=== PATIENT | female | born 1985 | race Caucasian/White ===

== ENCOUNTER 2023-06-16 17:01 | Emergency (ER) | payer OTHER, SELFPAY ==
[2023-06-16 17:07] VITALS: BP 132/87; PULSE 86; RESP 18; TEMP 36.9; O2SAT 99; BMI 31.8
--- NOTE | 2023-06-16 17:18 | PC.NURSE ---
pt presents to ED because pt was outside working in yard and stepped into a hole in ground and twisted left ankle. bruising and swelling to outside of left ankle. ice pack applied. pt able to extend and flex ankle without difficulty. pulses palpable.
--- NOTE | 2023-06-16 17:28 | XR_ITS ---
The [address] [address] Patient Name: KWAME MOREIRA MRN: [id number] date: 1985 Sex: F Assigned Patient Location: ER Current Patient Location: ER Accession/Order Number: [id number] Exam Date: 06/16/2023 17:29 Report Date: 06/16/2023 17:46 At the request of: KATJA TROY Procedure: XR ankle LT min 3V EXAM: XR ankle LT min 3V HISTORY: Stepped in hole COMPARISON: None. TECHNIQUE: 3 views FINDINGS: IMPRESSION: Mild lateral subcutaneous soft tissue edema. No fracture, dislocation, subluxation or osseous lesion. Joint spaces are unremarkable. No joint effusion. Electronically authenticated by: TRUDY ARTEAGA Date: 06/16/2023 17:46
[2023-06-16] MEDS: KETOROLAC TROMETHAMINE 10 MG TABLET PO (17:36)
--- NOTE | 2023-06-16 17:48 | ED.LOWEXI1 ---
HPI - Extremity Injury (Lower) General Chief Complaint: Extremity Injury, Lower Stated Complaint: FALL LEFT ANKLE Time Seen by Provider: 06/16/23 17:26 Source: patient Mode of arrival: Wheelchair History of Present Illness HPI Narrative: patient is a 38-year-old female presents the emergency department for left ankle injury that occurred at home just prior to arrival. Patient states she was out in her yard gardening when she stepped in a hole and twisted her left ankle. She states this was an isolated injury and she has no other areas of pain. She is not concerned for . She took Tylenol prior to arrival. She has not been able to ambulate. Related Data Previous Rx's Medication Instructions Recorded ketorolac 10 mg tablet 10 mg PO TID PRN pain #10 tabs 06/16/23 Allergies Allergy/AdvReac Type Severity Reaction Status Date / Time No Known Drug Allergies Allergy Verified 06/16/23 17:10 Review of Systems ROS Constitutional Denies: fever or chills Ears, nose, mouth, and throat Denies: throat pain Respiratory Denies: shortness of breath or cough Gastrointestinal Denies: nausea or vomiting Musculoskeletal Reports: extremity pain; Denies: back pain or neck pain Integumentary/Breast Denies: rash Neurological Denies: headache Hematologic/Lymphatic Denies: easy bruising Exam Narrative Exam Narrative: Gen.: Awake, alert, in no distress Head: Normocephalic, atraumatic ENT: Moist mucous membranes Respiratory: No respiratory distress Extremities: no appreciable swelling, ecchymosis or obvious deformity of the left ankle. Diffusely mildly tender over the left lateral malleolus. 2+ left DP pulse, no tenderness over the left 5th metatarsal. Normal flexion and extension of the toes of the left foot. No bony tenderness of the left tibia or left knee. Psych: Normal mood and affect Neuro: No focal neuro deficit Skin: Warm, dry, intact Constitutional Vital Signs, click to edit/add: Last Vital Signs Temp 98.4 F 06/16/23 17:07 Pulse 86 06/16/23 17:07 Resp 18 06/16/23 17:07 BP 132/87 06/16/23 17:07 Pulse Ox 99 06/16/23 17:07 O2 Del Method Room Air 06/16/23 17:07 Course Vital Signs Vital signs: Vital Signs Temperature 98.4 F 06/16/23 17:07 Pulse Rate 86 06/16/23 17:07 Respiratory Rate 18 06/16/23 17:07 Blood Pressure 132/87 06/16/23 17:07 Pulse Oximetry 99 06/16/23 17:07 Oxygen Delivery Method Room Air 06/16/23 17:07 Temperature 98.4 F 06/16/23 17:07 Pulse Rate 86 06/16/23 17:07 Respiratory Rate 18 06/16/23 17:07 Blood Pressure 132/87 06/16/23 17:07 Pulse Oximetry 99 06/16/23 17:07 Oxygen Delivery Method Room Air 06/16/23 17:07 MDM - Extremity Injury (Lower) MDM Narrative Medical decision making narrative: x-rays reviewed by the radiologist of the left ankle with no evidence of fracture or dislocation. Patient placed in an Anthony wrap and Aircast. Rest, ice, elevate. She remains neurovascularly intact. NSAIDs given for home. Return to the Emergency Room if symptoms change or worsen Medical Records Attestation: I reviewed the patient's medical records. Imaging Data XR ankle: Radiologist's impression: Procedure: XR ankle LT min 3V EXAM: XR ankle LT min 3V HISTORY: Stepped in hole COMPARISON: None. TECHNIQUE: 3 views FINDINGS: IMPRESSION: Mild lateral subcutaneous soft tissue edema. No fracture, dislocation, subluxation or osseous lesion. Joint spaces are unremarkable. No joint effusion. Electronically authenticated by: TRUDY ARTEAGA Date: 06/16/2023 17:46 Discharge Plan Discharge Chief Complaint: Extremity Injury, Lower Clinical Impression: Left ankle sprain Patient Disposition: Home, Self-Care Time of Disposition Decision: 17:51 Condition: Good Prescriptions / Home Meds: New ketorolac 10 mg tablet 10 mg PO TID PRN (Reason: pain) Qty: 10 0RF Instructions: Ankle Sprain (ED), P.R.I.C.E. Treatment (ED) Stand Alone Forms: Portal Instructions Referrals: ISAURA COTTRELL [Primary Care Provider] - 1 week
== END 2023-06-16 18:01 | disposition home or self-care (01) ==
PROVIDERS: Emergency Provider Emergency Medicine Emergency Medical Services; PCP Nurse Practitioner Family
DX: S93.402A Sprain of unspecified ligament of left ankle, initial encounter (principal); W18.42XA Slipping, tripping and stumbling without falling due to stepping into hole or opening, initial encounter
CPT/HCPCS: 73610; 99284

== ENCOUNTER 2023-08-19 07:24 | Outpatient (OUT) | payer OTHER, SELFPAY ==
[2023-08-19 07:55] LABS: Basophils Percent Auto 0.6 % (0.2-2.0); Eosinophils Absolute Auto 0.1 10^3/uL (0.0-0.7); Eosinophils Percent Auto 1.5 % (0.9-7.0); Hematocrit 38.2 % (36.0-48.0); Lymphocytes Absolute Auto 1.6 10^3/uL (1.2-3.8); Lymphocytes Percent Auto 33.9 % (20.5-60.0); Mean Platelet Volume 10.7 fL (9.5-13.5); Monocytes Absolute Auto 0.3 10^3/uL (0.3-0.8); Monocytes Percent Auto 6.6 % (1.7-12.0); Neutrophils Absolute Auto 2.7 10^3/uL (1.4-6.5); Neutrophils Percent Auto 57.4 % (43.0-75.0); Platelet Count 216 10^3/uL (150-450); Red Cell Distribution Width 12.1 % (11.0-15.0); White Blood Count 4.7 10^3/uL (4.0-11.0)
[2023-08-19 08:07] LABS: Estimated Average Glucose 103 mg/dL; Glycohemoglobin A1C 5.2 % (4.5-6.2)
[2023-08-19 08:39] LABS: Alanine Aminotransferase 17 U/L (14-59); Albumin Globulin Ratio 0.9; Albumin Level 3.4 g/dL (3.4-5.0); Alkaline Phosphatase 49 U/L (46-116); Anion Gap 12.9; Aspartate Amino Transferase 11 U/L (15-37); BUN Creatinine Ratio 12.5; Bilirubin Total 0.4 mg/dL (0.2-1.0); Calcium 8.7 mg/dL (8.5-10.1); Carbon Dioxide 25.5 mmol/L (21.0-32.0); Chloride 104 mmol/L (98-107); Chol HDL Ratio 2.6; Cholesterol 191 mg/dL (<=200); Estimated GFR (African America >60 (>=60); Estimated GFR (Non-African Ame >60 (>=60); Free T3 2.48 pg/mL (2.18-3.98); Globulin 3.7 g/dL; Glucose 90 mg/dL (74-106); HDL Cholesterol 73 mg/dL (40-60); Potassium 4.4 mmol/L (3.5-5.1); Sodium 138 mmol/L (136-145); Thyroid Stimulating Hormone 1.484 uIU/mL (0.358-3.740); Total Protein 7.1 g/dL (6.4-8.2); Triglycerides 79 mg/dL (<=150); VLDL CHOLESTEROL 15.8 mg/dL
[2023-08-20 11:12] LABS: Insulin 8.4 uIU/mL (2.6-24.9)
== END 2023-08-19 07:25 | disposition home or self-care (01) ==
LOC: LAB 07:30
PROVIDERS: PCP Nurse Practitioner Family; Visit Provider Nurse Practitioner Family
DX: Z00.00 Encounter for general adult medical examination without abnormal findings (principal)
CPT/HCPCS: 36415; 80053; 80061; 82306; 83036; 83525; 83540; 84436; 84443; 84481; 85025

== ENCOUNTER 2023-11-23 19:55 | Outpatient (REF) | payer OTHER, SELFPAY ==
--- OUTSIDE RECORDS SUMMARY | 2023-11-23 19:59 | XMS_ITS | CCD ---
Author Name Unknown Address [address] [place] [address] [address] [place] [address] Organization [facility] Care Team Providers Care Measurement Analyst Name Role Phone Unavailable Unavailable Unavailable ANUJ NELSON Unavailable Unavailable ISAURA COTTRELL Admitting Unavailable ISAURA COTTRELL Attending Unavailable ISAURA COTTRELL Primary Care Unavailable DR HELGA JONES Admitting Unavailable DR HELGA JONES Attending Unavailable ISAURA COTTRELL Primary Care Unavailable DR HELGA JONES Consulting Unavailable Problems Problem Classification Problem Date Documented Da te Episodic/Chronic Other upper respiratory infections (1 source) Acute pharyngitis, unspecified; Translations: [Acute pharyngitis, unspecified] Onset: 09-01-2017 Episodic Results Test Name Value Interpretation Reference Range [facility] it ED Provider Noteon 7 HIM 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 [facility] Encounters Encounter Date Encounter Type Care Provider Facility Start: 10-28-2022 End: 10-28-[address] HELGA JONES Facility:[facility] Start: 08-29-2022 ambulatory ISAURA COTTRELL Facility: [facility] Start: 09-01-2017 End: 09-01-2017 Emergency department patient visit ANUJ [facility] Start: 09-06-2015 End: 09-06-2015 Ambulatory Pete Michaels Work Phone: [facility] Payers Date Payer Category Payer Unknown [id number] 1985 Unknown [id number] 1958 Self-pay 1958 Unknown [id number] Social History Date Type Detail Facility Start: 12-18-2017 Tobacco smoking status MOIS Unknown if ever smoked [facility] Sex Assigned At Not on file [place] [facility] Summary Purpose Family History No Family History Records FoundNo Family History Records Found Advance Directives No Advanced Directives Records FoundNo Advanced Directives Records Found Additional Source Comments INFORMATION SOURCE (unrecogn ized section and content) DATE CREATED AUTHOR 04/06/2018 [facility] DATE CREATED AUTHOR AUTHOR'S ORGANIZ ATION 10/29/2022 [facility] FOR RECORDS PERTAINING TO PATIENTS WHO ARE OR HAVE BEEN ENROLLED IN A CHEMICAL DEPENDENCY/SUBSTANCEABUSE PROGRAM, SOME INFORMATION MAY BE OMITTED. This clinical summary was aggregated from multiple sources. Caution should be exercised in using it in the provision of clinical care. This summary normalizes information from multiple sources, and as a consequence, information in this document may materially change the coding, format and clinical context of patient data. In addition, data may be omitted in some cases. CLINICAL DECISIONS SHOULD BE BASED ON THE PRIMARY CLINICAL RECORDS. [facility] [employer] provides no warranty or guarantee of the accuracy or completeness of information in this document.
[2023-11-27 04:07] LABS: Age Gdln ACOG Testing Note (.); HPV Aptima Negative (Negative); IGP, Aptima HPV, rfx 16/18,45 Note (.)
== END 2023-11-23 19:56 | disposition home or self-care (01) ==
LOC: LAB 19:55
PROVIDERS: PCP Nurse Practitioner Family; Visit Provider Physician Assistant
DX: Z01.419 Encounter for gynecological examination (general) (routine) without abnormal findings (principal)
CPT/HCPCS: 87624; G0145